=== PATIENT | female | born 1975 | race Native Hawaiian/Other Pacific Islander ===

== ENCOUNTER 2018-10-02 12:27 | Outpatient (CLI) | payer OTHER | END 2018-10-02 12:30 | disposition short-term general hospital (02) | LOC: AMB 12:27 | DX: T17.228A Food in pharynx causing other injury, initial encounter (principal); K22.2 Esophageal obstruction | CPT/HCPCS: A0425; A0429 ==

== ENCOUNTER 2018-10-02 12:35 | Emergency (ER) | payer OTHER ==
[~2018-10-02] VITALS: Ht 165.1 cm; Wt 81.6 kg
[2018-10-02 13:25] VITALS: BP 161/82; TEMP 98.1
== END 2018-10-02 13:25 | disposition home or self-care (01) ==
LOC: ED 12:35
DX: T17.228A Food in pharynx causing other injury, initial encounter (principal); R13.19 Other dysphagia
CPT/HCPCS: 96372; 99283; J1610